=== PATIENT | male | born 1965 | race Caucasian/White ===

== ENCOUNTER → 2017-08-29 | Outpatient (CLI) | payer BC ==
--- NOTE | 2017-08-29 09:28 | MR ---
EXAMINATION TYPE: MR knee RT wo con DATE OF EXAM: 08/29/2017 COMPARISON: None HISTORY: Sprain of anterior ligament right knee TECHNIQUE: Multiplanar, multisequence images of the knee is performed without IV contrast. FINDINGS: MEDIAL MENISCUS: Diminutive posterior horn medial meniscus felt to reflect tear. Anterior horn is unr emarkable. LATERAL MENISCUS: Anterior and posterior horns are intact without tear. CRUCIATE LIGAMENTS: No visible ACL is seen felt to reflect chronic ACL tear. PCL has a normal appearance. COLLATERAL LIGAMENTS: The medial collateral ligament and lateral collateral ligament complex are intact and unremarkable. EXTENSOR MECHANISM: Visualized quadriceps and patellar tendons are intact. EFFUSION: Small moderate suprapatellar joint effusion. POPLITEAL CYST: Popliteal ganglion cyst measuring 2.1 x 1.4 cm. TRICOMPARTMENT SPACES: Moderate medial and lateral tibiofemoral joint space narrowing as well as gomes llofemoral joint space narrowing. Associated spur formation. CARTILAGE: Intact. BONE MARROW SIGNAL: No focal abnormal marrow signal is appreciated. OTHER: No additional significant abnormality is appreciated. IMPRESSION: 1. Chronic ACL tear. 2. Medial meniscal tear suspected. 3. Moderately advanced changes of osteoarthritis. 4. Popliteal fossa cyst.
== END | disposition home or self-care (01) ==
LOC: RADMRIMAIN 07:32
PROVIDERS: ATTEND Family Medicine
DX: S83.511A Sprain of anterior cruciate ligament of right knee, initial encounter (principal); M17.11 Unilateral primary osteoarthritis, right knee; M71.21 Synovial cyst of popliteal space [Baker], right knee

== ENCOUNTER → 2017-10-12 | Outpatient (CLI) | payer BC ==
--- NOTE | 2017-10-12 15:06 | XR ---
EXAMINATION TYPE: XR chest 2V DATE OF EXAM: 10/12/2017 COMPARISON: 03/09/2015 HISTORY: Shortness of breath TECHNIQUE: Frontal and lateral views of the chest are obtained. FINDINGS: Scattered senescent parenchymal changes noted. Hyperinflation compatible with COPD. No evidence for infiltrate. No evidence for atelectasis. Heart size is stable. Mediastinal structures are stable and grossly unremarkable. No evidence for hilar prominence. Degenerative changes dorsal spine. IMPRESSION: 1. No evidence for acute pulmonary disease.
== END | disposition home or self-care (01) ==
LOC: RADXRMAIN 14:12
PROVIDERS: ATTEND Family Medicine
DX: J44.9 Chronic obstructive pulmonary disease, unspecified (principal)
CPT/HCPCS: 71046

== ENCOUNTER → 2019-01-24 | Outpatient (CLI) | payer MEDICARE ==
--- NOTE | 2019-01-24 11:36 | XR ---
EXAMINATION TYPE: XR knee complete LT DATE OF EXAM: 01/24/2019 CLINICAL HISTORY: pain TECHNIQUE: Three views of the left knee are obtained. COMPARISON: None. FINDINGS: There is no acute fracture/dislocation. The tri-compartment joint spaces appear within no rmal limits. The overlying soft tissue appears unremarkable. IMPRESSION: There is no acute fracture or dislocation ICD 10 NO FRACTURE, INITIAL EVALUATION
== END | disposition home or self-care (01) ==
LOC: RADXRYALE 10:30
PROVIDERS: ATTEND Physician Assistant
DX: M25.562 Pain in left knee (principal)

== ENCOUNTER → 2023-04-03 | Outpatient (CLI) | payer MEDICARE ==
--- NOTE | 2023-04-03 20:32 | US ---
EXAMINATION TYPE: US scrotum with doppler. TECHNIQUE: Grayscale and color Doppler Duplex imaging performed of the scrotum. DATE OF EXAM: 04/03/2023 COMPARISON: NONE CLINICAL INDICATION: Male, 57 years old with history of N50.82 PAIN N49.2 INFLAMMATORY DISORDERS OF S CROT; Lump midline/left testicle x 3 weeks. Vasectomy 25 years ago. Recent diagnosis of melanoma EXAM MEASUREMENTS: TESTICLES: Right Testicle: 3.5 x 2.3 x 3.2 cm Left Testicle: 3.9 x 2.3 x 3.1 cm EPIDIDYMIS HEAD: Right Epididymis: 1.1 x 1.6 x 0.7 cm. Slightly heterogeneous appearance to the right epididymis. Left Epididymis: 0.8 x 1.3 x 1.5 cm Doppler performed to assess for testicular vascularity; good bilateral color flow and waveforms are s een. There is no evidence of testicular torsion. Presence of hydroceles: Trace hydrocele on the right. Large cystlike area lateral to the left testic le measuring 5.8 x 4.3 x 3.1 cm times flowing internal vertebrae. Presence of varicoceles: no IMPRESSION: 1. Large 5.8 cm cystlike area containing some debris lateral to the left testicle. Unclear if this co rresponds to a scrotal hydrocele or a loculated collection of fluid. Further clinical correlation rec ommended. 2. Somewhat heterogeneous appearance to the right epididymis may be technical. Correlate for any symp toms of potential epididymitis. Trace hydrocele on the right. 3. No sonographic evidence for testicular torsion or testicular mass.
== END | disposition home or self-care (01) ==
LOC: RADUSWWP 12:51
PROVIDERS: ATTEND Family Medicine
DX: N50.89 Other specified disorders of the male genital organs (principal); N49.2 Inflammatory disorders of scrotum; N50.82 Scrotal pain; C43.9 Malignant melanoma of skin, unspecified; Z98.52 Vasectomy status
CPT/HCPCS: 76870; 93975